=== PATIENT | male | born 1975 | race Two or more races ===

== ENCOUNTER 2024-10-20 09:48 | Emergency (ER) | payer OTHER ==
[~2024-10-20] VITALS: Ht 175.3 cm; Wt 100.7 kg
[2024-10-20] MEDS ORDERED: MORPHINE SULFATE INJ 2 MG/ML DISP.SYRIN ONE (10:11)
[2024-10-20] MEDS: MORPHINE SULFATE INJ 2 MG/ML DISP.SYRIN IV ONE (10:14)
[2024-10-20 10:15] VITALS: TEMP 98.2
[2024-10-20] MEDS ORDERED: NAPR-1009 PO (11:59)
[2024-10-20 12:11] VITALS: BP 120/87; O2SAT 98
== END 2024-10-20 12:10 | disposition home or self-care (01) ==
LOC: ER 09:50
DX: S63.591A Other specified sprain of right wrist, initial encounter (principal); S83.8X2A Sprain of other specified parts of left knee, initial encounter; R51.9 Headache, unspecified; W11.XXXA Fall on and from ladder, initial encounter; Y93.89 Activity, other specified; Y92.89 Other specified places as the place of occurrence of the external cause; Y99.8 Other external cause status
CPT/HCPCS: 99285; 72125; 96374; 72100; 73090; 73560; 71250; 70450; 73110; 74176; J2270